=== PATIENT | female | born 1990 | race Caucasian/White ===

== ENCOUNTER 2022-08-01 20:40 | Emergency (ER) | payer MEDICAID ==
[~2022-08-01] VITALS: Ht 157.5 cm; Wt 66.0 kg
[2022-08-01 20:48] VITALS: BP 164/100
[2022-08-01] MEDS ORDERED: IBUP-2028 MT (22:24)
[2022-08-01] MEDS ORDERED: IBUPROFEN 400MG TABLET PO ONE (22:30)
== END 2022-08-01 22:40 | disposition home or self-care (01) ==
LOC: ER 20:40
DX: S00.83XA Contusion of other part of head, initial encounter (principal); W20.8XXA Other cause of strike by thrown, projected or falling object, initial encounter; Y93.E5 Activity, floor mopping and cleaning; Y92.012 Bathroom of single-family (private) house as the place of occurrence of the external cause
CPT/HCPCS: 99282

== ENCOUNTER 2022-08-02 08:46 | Emergency (ER) | payer MEDICAID ==
[~2022-08-02] VITALS: Ht 167.6 cm; Wt 77.0 kg
[~2022-08-02 08:46] MED LIST: IBUP-2028 MT
[2022-08-02] MEDS ORDERED: SODIUM CHLORIDE 0.9% 1,000 ML IV ONE (11:00)
[2022-08-02] MEDS ORDERED: ACETAMINOPHEN 325MG TABLET PO ONE (11:00)
[2022-08-02 12:13] LABS: BASOPHILS % 0.4 % (0.0-2.0); EOSINOPHILS % 0.5 % (0.0-5.0); HEMATOCRIT. 38.1 % (36.0-48.0); HEMOGLOBIN. 13.4 g/dL (12.0-16.0); LYMPHOCYTES % 34.4 % (20.0-50.0); MEAN CORPUSCULAR HEMOGLOBIN 31.5 pg (28.0-32.0); MEAN CORPUSCULAR VOLUME 89.9 fL (81.0-99.0); MEAN PLATELET VOLUME 7.7 fl (7.4-10.4); MONOCYTES % 6.2 % (2.0-8.0); NEUTROPHILS % 58.5 % (40.0-76.0); PLATELET 316 x1000/uL (130-400); RED BLOOD CELL COUNT 4.24 mill/uL (4.2-5.4); RED CELL DISTRIBUTION WIDTH 12.9 % (11.6-14.6)
[2022-08-02 12:17] LABS: CHLORIDE 107 mEq/L (98-107)
[2022-08-02 13:27] LABS: HCG SCREEN NEGATIVE
[2022-08-02 14:14] VITALS: BP 126/75
== END 2022-08-02 14:17 | disposition home or self-care (01) ==
LOC: ER 08:46
DX: S06.0X1A Concussion with loss of consciousness of 30 minutes or less, initial encounter (principal); W01.198A Fall on same level from slipping, tripping and stumbling with subsequent striking against other object, initial encounter; Y93.89 Activity, other specified; Y92.89 Other specified places as the place of occurrence of the external cause
CPT/HCPCS: 36415; 70450; 71045; 80053; 84484; 84703; 85025; 93005; 96360; 99285; J7030; Z7610

== ENCOUNTER 2023-11-14 11:22 | Emergency (ER) | payer MEDICAID ==
[~2023-11-14] VITALS: Ht 154.9 cm; Wt 59.0 kg
[2023-11-14 11:37] VITALS: O2SAT 98
[2023-11-14] MEDS ORDERED: CEPH500C2 MT (13:29)
[2023-11-14] MEDS: IBUPROFEN 600MG TABLET PO STA (13:40)
[2023-11-14 13:45] VITALS: BP 132/79; PULSE 61; RESP 16; TEMP 98.1
== END 2023-11-14 13:46 | disposition home or self-care (01) ==
LOC: ER 11:22
DX: L73.9 Follicular disorder, unspecified (principal); R07.89 Other chest pain
CPT/HCPCS: 71045; 81025; 99283

== ENCOUNTER 2023-12-27 11:09 | Emergency (ER) | payer MEDICAID ==
[~2023-12-27] VITALS: Ht 160 cm; Wt 58.0 kg
[~2023-12-27 11:09] MED LIST changes: +CEPH500C2 MT
[2023-12-27 11:22] VITALS: BP 128/79; PULSE 69; RESP 18; TEMP 98.4; O2SAT 99
[2023-12-27] MEDS: ACETAMINOPHEN 325MG TABLET PO NR (12:41)
[2023-12-27 13:08] LABS: BASOPHILS % 0.5 % (0.0-2.0); EOSINOPHILS % 0.1 % (0.0-5.0); HEMATOCRIT. 36.7 % (36.0-48.0); HEMOGLOBIN. 12.6 g/dL (12.0-16.0); LYMPHOCYTES % 26.2 % (20.0-50.0); MEAN CORPUSCULAR HEMOGLOBIN 31.5 pg (28.0-32.0); MEAN CORPUSCULAR HGB CONC 34.3 g/dL (31.0-37.0); MEAN CORPUSCULAR VOLUME 91.9 fL (81.0-99.0); MEAN PLATELET VOLUME 7.5 fl (7.4-10.4); MONOCYTES % 4.2 % (2.0-8.0); PLATELET 285 x1000/uL (130-400); RED BLOOD CELL COUNT 3.99 mill/uL (4.2-5.4); RED CELL DISTRIBUTION WIDTH 13.2 % (11.6-14.6); WHITE BLOOD COUNT 6.8 x1000/uL (4.5-11.0)
[2023-12-27 13:18] LABS: CARBON DIOXIDE 26 mEq/L (21-32); CHLORIDE 105 mEq/L (98-107); POTASSIUM 3.9 mEq/L (3.5-5.1); SODIUM 138 mEq/L (136-145)
[2023-12-27 13:19] LABS: CALCIUM 9.2 mg/dL (8.7-10.4)
[2023-12-27 13:23] LABS: CREATININE 0.6 mg/dL (0.6-1.0)
[2023-12-27 13:24] LABS: GLUCOSE 103 mg/dL (70-105); UREA NITROGEN BLOOD 7 mg/dL (9-23)
[2023-12-27 13:25] LABS: ALANINE AMINOTRANSFERASE 9 IU/L (10-49); ALBUMIN 4.6 g/dL (3.2-4.8); ASPARTATE AMINOTRANSFERASE 18 IU/L (<34)
[2023-12-27 13:58] LABS: HCG SCREEN NEGATIVE
[2023-12-27 14:39] LABS: BILIRUBIN DIRECT 0.1 mg/dL (<=3.0); PROTEIN TOTAL 7.4 g/dL (6.0-8.3)
[2023-12-27 14:40] LABS: BILIRUBIN TOTAL 0.5 mg/dL (0.1-1.0)
== END 2023-12-27 15:37 | disposition home or self-care (01) ==
LOC: ER 11:09
DX: R51.9 Headache, unspecified (principal); I10 Essential (primary) hypertension
CPT/HCPCS: 36415; 80048; 80076; 84703; 85025; 93005; 99284

== ENCOUNTER 2024-04-11 07:54 | Emergency (ER) | payer MEDICAID ==
[~2024-04-11] VITALS: Ht 157.5 cm; Wt 58.0 kg
[2024-04-11 08:00] VITALS: O2SAT 100
[2024-04-11 08:24] LABS: BASOPHILS % 0.3 % (0.0-2.0); EOSINOPHILS % 0.4 % (0.0-5.0); HEMATOCRIT. 38.8 % (36.0-48.0); LYMPHOCYTES % 23.3 % (20.0-50.0); MEAN CORPUSCULAR HEMOGLOBIN 31.2 pg (28.0-32.0); MEAN CORPUSCULAR HGB CONC 33.5 g/dL (31.0-37.0); MEAN CORPUSCULAR VOLUME 93.1 fL (81.0-99.0); MEAN PLATELET VOLUME 7.3 fl (7.4-10.4); MONOCYTES % 6.3 % (2.0-8.0); NEUTROPHILS % 69.7 % (40.0-76.0); PLATELET 279 x1000/uL (130-400); RED BLOOD CELL COUNT 4.16 mill/uL (4.2-5.4); RED CELL DISTRIBUTION WIDTH 13.3 % (11.6-14.6); WHITE BLOOD COUNT 7.8 x1000/uL (4.5-11.0)
[2024-04-11 08:31] LABS: CHLORIDE 109 mEq/L (98-107); POTASSIUM 3.7 mEq/L (3.5-5.1); SODIUM 139 mEq/L (136-145)
[2024-04-11 08:32] LABS: CALCIUM 9.1 mg/dL (8.7-10.4); CARBON DIOXIDE 25 mEq/L (21-32)
[2024-04-11 08:37] LABS: CREATININE 0.7 mg/dL (0.6-1.0); GLUCOSE 93 mg/dL (70-105); UREA NITROGEN BLOOD 6 mg/dL (9-23)
[2024-04-11 08:50] LABS: CLARITY URINE CLOUDY (CLEAR); COLOR URINE YELLOW (YELLOW); GLUCOSE URINE NEGATIVE (NEGATIVE); KETONES URINE NEGATIVE (NEGATIVE); LEUKOCYTE ESTERASE URINE TRACE (NEGATIVE); NITRITE URINE NEGATIVE (NEGATIVE); OCCULT BLOOD URINE NEGATIVE (NEGATIVE); PH URINE 5.5 (4.5-8.0); PROTEIN URINE NEGATIVE (NEGATIVE); SPECIFIC GRAVITY URINE 1.017 (1.005-1.030); UROBILINOGEN URINE 0.2 E.U./dL (0.2-1.0)
[2024-04-11 09:25] LABS: SQUAMOUS EPITHELIAL CELL URINE 3+ /lpf (RARE/1+)
[2024-04-11 09:26] LABS: BACTERIA URINE 2+; MUCUS URINE TRACE /lpf (< = 2+)
[2024-04-11 09:27] LABS: WBC URINE 0-2 /hpf (0-2)
[2024-04-11 09:28] LABS: RBC URINE NONE SEEN /hpf (0-2)
[2024-04-11 09:57] LABS: HCG SCREEN POSITIVE
[2024-04-11 10:15] LABS: B-HCG QUANTITATIVE 1115 mIU/mL (<3)
[2024-04-11] MEDS ORDERED: PREN-135 MT (12:17)
[2024-04-11 12:27] VITALS: BP 124/88; PULSE 78; RESP 16; TEMP 36.83628; O2SAT 100
== END 2024-04-11 12:28 ==
LOC: ER 07:54
DX: O26.891 Other specified pregnancy related conditions, first trimester (principal); O20.9 Hemorrhage in early pregnancy, unspecified; Z3A.01 Less than 8 weeks gestation of pregnancy; Z79.899 Other long term (current) drug therapy; Z98.890 Other specified postprocedural states
CPT/HCPCS: 36415; 76801; 80048; 81003; 81025; 84702; 84703; 85025; 99284

== ENCOUNTER 2024-04-20 01:53 | Emergency (ER) | payer MEDICAID ==
[~2024-04-20] VITALS: Ht 162.6 cm; Wt 57.2 kg
[~2024-04-20 01:53] MED LIST changes: +PREN-135 MT
[2024-04-20 02:06] VITALS: O2SAT 100
[2024-04-20 02:42] LABS: BASOPHILS % 0.4 % (0.0-2.0); CHLORIDE 107 mEq/L (98-107); EOSINOPHILS % 0.7 % (0.0-5.0); HEMATOCRIT. 37.5 % (36.0-48.0); HEMOGLOBIN. 12.6 g/dL (12.0-16.0); LYMPHOCYTES % 29.1 % (20.0-50.0); MEAN CORPUSCULAR HEMOGLOBIN 30.9 pg (28.0-32.0); MEAN CORPUSCULAR HGB CONC 33.6 g/dL (31.0-37.0); MEAN CORPUSCULAR VOLUME 91.9 fL (81.0-99.0); MEAN PLATELET VOLUME 7.3 fl (7.4-10.4); MONOCYTES % 5.5 % (2.0-8.0); NEUTROPHILS % 64.3 % (40.0-76.0); PLATELET 254 x1000/uL (130-400); POTASSIUM 3.7 mEq/L (3.5-5.1); RED BLOOD CELL COUNT 4.08 mill/uL (4.2-5.4); RED CELL DISTRIBUTION WIDTH 13.2 % (11.6-14.6); SODIUM 138 mEq/L (136-145); WHITE BLOOD COUNT 7.8 x1000/uL (4.5-11.0)
[2024-04-20 02:43] LABS: CALCIUM 9.3 mg/dL (8.7-10.4); CARBON DIOXIDE 25 mEq/L (21-32)
[2024-04-20 02:48] LABS: CREATININE 0.7 mg/dL (0.6-1.0); GLUCOSE 102 mg/dL (70-105); UREA NITROGEN BLOOD 10 mg/dL (9-23)
[2024-04-20 03:19] LABS: B-HCG QUANTITATIVE 14945 mIU/mL (<3)
[2024-04-20 05:29] LABS: CLARITY URINE CLEAR (CLEAR); COLOR URINE YELLOW (YELLOW); GLUCOSE URINE NEGATIVE (NEGATIVE); KETONES URINE NEGATIVE (NEGATIVE); LEUKOCYTE ESTERASE URINE NEGATIVE (NEGATIVE); NITRITE URINE NEGATIVE (NEGATIVE); OCCULT BLOOD URINE TRACE (NEGATIVE); PROTEIN URINE NEGATIVE (NEGATIVE); SPECIFIC GRAVITY URINE 1.014 (1.005-1.030)
[2024-04-20 05:54] VITALS: BP 133/64; PULSE 71; RESP 16; TEMP 37.00296; O2SAT 100
[2024-04-20 07:25] LABS: SQUAMOUS EPITHELIAL CELL URINE FEW /lpf (RARE/1+)
[2024-04-20 07:29] LABS: RBC URINE 0-2 /hpf (0-2); WBC URINE 0-2 /hpf (0-2)
[2024-04-20 07:30] LABS: BACTERIA URINE NONE SEEN
== END 2024-04-20 07:02 | disposition home or self-care (01) ==
LOC: ER 01:53
DX: O20.0 Threatened abortion (principal); Z3A.01 Less than 8 weeks gestation of pregnancy
CPT/HCPCS: 36415; 76801; 80048; 81003; 84702; 85025; 86850; 86900; 99284

== ENCOUNTER 2024-09-21 02:27 | Emergency (ER) | payer MEDICAID ==
[~2024-09-21] VITALS: Ht 157.5 cm; Wt 165.0 kg
[2024-09-21 02:36] VITALS: O2SAT 100
[2024-09-21 03:12] VITALS: BP 131/89; PULSE 84; RESP 18; TEMP 37; O2SAT 100
[2024-09-21] MEDS: ACETAMINOPHEN 500MG TABLET PO NR (08:00)
[2024-09-21 09:08] LABS: CHLORIDE 106 mEq/L (98-107); POTASSIUM 3.7 mEq/L (3.5-5.1); SODIUM 139 mEq/L (136-145)
[2024-09-21 09:09] LABS: BASOPHILS % 0.2 % (0.0-2.0); CALCIUM 8.7 mg/dL (8.7-10.4); CARBON DIOXIDE 21 mEq/L (21-32); EOSINOPHILS % 0.8 % (0.0-5.0); HEMATOCRIT. 36.1 % (36.0-48.0); HEMOGLOBIN. 12.2 g/dL (12.0-16.0); MEAN CORPUSCULAR HEMOGLOBIN 31.2 pg (28.0-32.0); MEAN CORPUSCULAR HGB CONC 33.7 g/dL (31.0-37.0); MEAN CORPUSCULAR VOLUME 92.6 fL (81.0-99.0); MEAN PLATELET VOLUME 7.6 fl (7.4-10.4); MONOCYTES % 5.1 % (2.0-8.0); NEUTROPHILS % 78.9 % (40.0-76.0); PLATELET 199 x1000/uL (130-400); RED BLOOD CELL COUNT 3.89 mill/uL (4.2-5.4); RED CELL DISTRIBUTION WIDTH 14.1 % (11.6-14.6); WHITE BLOOD COUNT 7.4 x1000/uL (4.5-11.0)
[2024-09-21 09:14] LABS: GLUCOSE 88 mg/dL (70-105); UREA NITROGEN BLOOD 6 mg/dL (9-23)
[2024-09-21 09:19] LABS: CREATININE 0.4 mg/dL (0.6-1.0)
[2024-09-21] MEDS: GUAIFENESIN-DM 200MG-20MG/10ML UDC PO NR (09:24)
[2024-09-21] MEDS ORDERED: TOPUD PO (10:12)
== END 2024-09-21 10:31 | disposition home or self-care (01) ==
LOC: ER 02:27
DX: O99.512 Diseases of the respiratory system complicating pregnancy, second trimester (principal); O98.512 Other viral diseases complicating pregnancy, second trimester; B34.9 Viral infection, unspecified; J06.9 Acute upper respiratory infection, unspecified; Z3A.27 27 weeks gestation of pregnancy
CPT/HCPCS: 36415; 71045; 80048; 85025; 99284